=== PATIENT | male | born 1965 | race African-American/Black ===

== ENCOUNTER 2020-12-10 11:15 | Inpatient (IN) | payer OTHER ==
[~2020-12-10] VITALS: Ht 152.4 cm; Wt 78.0 kg
[2020-12-10] MEDS ORDERED: ALTACE10 MG PO (12:56)
[2020-12-10] MEDS ORDERED: ECOTRIN81 MG PO (12:57)
[2020-12-10] MEDS ORDERED: GABAPENTIN100 M2 PO (12:57)
[2020-12-10] MEDS ORDERED: ATORVASTATIN CA20 MG PO (12:57)
[2020-12-18] MEDS ORDERED: ULTRACET PO (08:31)
[2020-12-18] MEDS ORDERED: DERMOPLAST FIRS78 GM TOP (08:32)
== END 2020-12-18 10:44 | disposition home or self-care (01) | DRG 376 ==
LOC: O/R 12-17 06:30 → SURH 12-17 06:30
PROVIDERS: ADMIT Surgery; ATTEND Surgery
PROC: 0DBP8ZZ Excision of Rectum, Via Natural or Artificial Opening Endoscopic (ICD-10-PCS; principal; 2020-12-17 08:45)
DX: D37.5 Neoplasm of uncertain behavior of rectum (principal); D3A.026 Benign carcinoid tumor of the rectum; R19.5 Other fecal abnormalities; I10 Essential (primary) hypertension; E78.5 Hyperlipidemia, unspecified